=== PATIENT | male | born 1995 | race Caucasian/White ===

== ENCOUNTER 2022-12-22 08:17 | Emergency (ER) | payer OTHER, SELFPAY ==
--- NOTE | 2022-12-22 08:33 | ED.EYEPROB ---
HPI - Eye Problem General Chief complaint: Eye Problems Stated complaint: lt eye irritation and swelling Time Seen by Provider: 12/22/22 08:27 Source: patient Mode of arrival: ambulatory Limitations: no limitations History of Present Illness HPI Narrative: Patient is a 27-year-old male who presents with left eye swelling and irritation. Patient states he felt like there was something in his eye yesterday but no longer has that sensation. Patient states he woke up with eye crusted shut and eyelid swollen. Patient has history conjunctivitis. Patient was not wearing contacts at that time. Patient has tried lubricating drops with mild relief. Denies any fever, chills, changes in vision, eye pressure or eye pain. Related Data Allergies Allergy/AdvReac Type Severity Reaction Status Date / Time chlorpheniramine AdvReac Mild Hives Verified 12/22/22 08:39 [From Donatussin] dextromethorphan AdvReac Mild Hives Verified 12/22/22 08:39 [From Donatussin] phenylephrine AdvReac Mild Hives Verified 12/22/22 08:39 [From Donatussin] Review of Systems Review of Systems: All systems reviewed & are unremarkable except as noted in HPI and below Constitutional: Constitutional: Denies body ache(s), Denies fever(s), Denies headache(s), Denies malaise and Denies weakness Eyes: Eyes: Denies blurry vision, Reports eye discharge, Reports irritation, Denies itchy eyes, Denies loss of vision, Denies eye pain and Reports other (Eyelid swelling) ENT: Denies otalgia, Denies headache(s), Denies nasal discharge, Denies sinus pain and Denies sore throat Cardiovascular: Cardiovascular: Denies chest pain, Denies irregular heart rhythm and Denies dyspnea Respiratory: Respiratory: Denies dyspnea Gastrointestinal: Gastrointestinal: Denies abdominal pain, Denies diarrhea, Denies nausea and Denies vomiting Musculoskeletal: Musculoskeletal: Denies back pain, Denies myalgias and Denies arthralgias Integumentary/Breasts: Skin/Breast: Denies pruritus and Denies rash Neurologic: Denies headache(s), Denies loss of vision and Denies weakness Psychiatric: Psychiatric: Reports no additional psychiatric complaints Allergic/Immunologic: Allergic/Immunologic: Reports itchy eyes PMFSH Comments At time of signature, agree with nursing past medical, surgical, social and family history. There is no relevant family history pertinent to the presenting complaint. Exam Const: General: cooperative, healthy appearing, comfortable, no acute distress and well nourished Nutritional Appearance: well nourished Orientation/consciousness: patient oriented x3 Limitations: no limitations HENMT: Head: normal to inspection, normocephalic and atraumatic Ears: external ears normal Face/Nose/Sinus: Normal external nose present, normal facial exam and face symmetric Face and sinus: normal facial exam and face symmetric Mouth: Yes lip normal Eyes: General: appearance normal, both eyes and all related structures Visual Holman: normal visual holman by confrontation Alignment and Position: alignment normal and position normal Periorbital: periorbital findings normal Eyelids: eyelid abnormality left upper eyelid swelling; without erythema and nontender and left lower eyelid swelling; without erythema and nontender Conjunctivae: conjunctival abnormality left conjunctival injection diffuse and discharge mucoid Sclera: scleral abnormality left scleral injection diffuse; without scleral tenderness Pupils: Equal, round and reactive pupils present EOM: EOMs intact bilaterally Direct Ophthalmoscopy: no photophobia Other: No hyphema, no foreign body under the lids. Neck: Neck: normal visual inspection, full ROM, no lymphadenopathy and no meningeal signs Chest: Chest palpation & inspection: normal inspection of the chest Resp: Effort & Inspection: normal respiratory effort and able to speak in complete sentences Auscultation: clear to auscultation bilaterally Cardio: Rate:
[2022-12-22 08:34] VITALS: BP 146/105; PULSE 78; RESP 18; TEMP 36.5; O2SAT 99
== END 2022-12-22 08:47 | disposition home or self-care (01) ==
PROVIDERS: Emergency Provider Nurse Practitioner Family
DX: H10.32 Unspecified acute conjunctivitis, left eye (principal)
CPT/HCPCS: 99213; G0463